=== PATIENT | female | born 1970 | race Caucasian/White ===

== ENCOUNTER 2017-07-19 19:07 | Emergency (ER) | payer SELFPAY ==
[~2017-07-19] VITALS: Ht 154.9 cm; Wt 45.4 kg
[2017-07-19] MEDS ORDERED: NKM (19:25)
[2017-07-19 19:31] VITALS: BP 135/59
[2017-07-19] MEDS ORDERED: Tylenol #3 tab (300mg/30mg) ORAL ONE (19:45)
[2017-07-19] MEDS ORDERED: ACETAMINOPHEN-1 EAC1 ORAL (20:40)
[2017-07-19 20:45] VITALS: BP 129/70
--- NOTE | 2017-07-20 10:37 | Diagnostic Imaging Report ---
Indication: Neck pain. Technique: Continuous helical imaging of the cervical spine was obtained transaxially from the skull base to the upper thoracic spine. 2-D coronal and sagittal reformatted images were obtained. Total Dose length Product (DLP): [address] Dose Index Volume (CTDIvol): 8.47, 0.25 mGy Comparison: None Findings: There is no acute fracture or malalignment identified. There is no soft tissue swelling identified. Mild uncovertebral arthritis is demonstrated at the C5-6 level. The disc is narrowed and endplate spurs noted at this level as well. 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 Dr. Fisher has communicated the preliminary results to the Emergency Department. There are no significant discrepancies. The CT scanner at [facility] is accredited by the [employer] and the scans are performed using dose optimization techniques as appropriate to a performed exam including Automatic Exposure control.
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
== END 2017-07-19 20:44 | disposition home or self-care (01) ==
LOC: EMR 19:40
DX: M50.322 Other cervical disc degeneration at C5-C6 level (principal)
CPT/HCPCS: 72125; 99284

== ENCOUNTER 2019-09-06 17:36 | Emergency (ER) | payer SELFPAY ==
[~2019-09-06] VITALS: Ht 162.6 cm; Wt 49.9 kg
[~2019-09-06 17:36] MED LIST: ACETAMINOPHEN-1 EAC1 ORAL; NKM
[2019-09-06 18:07] VITALS: BP 136/83
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
[2019-09-06] MEDS ORDERED: ROBAXIN-500MG ORAL (18:20)
[2019-09-06] MEDS ORDERED: IBU800 MG PO (18:20)
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
--- NOTE | 2019-09-06 18:50 | NUR ---
ER DISCHARGE NOTE: Patient is cleared to be discharged per ERMD, pt is aox4, on room air, with stable vital signs. pt was given dc and prescription instructions, pt was able to verbalize understanding, pt is able to ambulate with steady gait. pt took all belongings.
[2019-09-06 19:24] VITALS: BP 136/83
== END 2019-09-06 19:00 | disposition home or self-care (01) ==
LOC: EMR 18:40
DX: S13.4XXA Sprain of ligaments of cervical spine, initial encounter (principal); V43.52XA Car driver injured in collision with other type car in traffic accident, initial encounter; Y92.410 Unspecified street and highway as the place of occurrence of the external cause
CPT/HCPCS: 99282